=== PATIENT | male | born 1950 | race Caucasian/White ===

== ENCOUNTER 2020-09-22 14:33 | Inpatient (IN) ==
--- NOTE | 2020-09-22 14:47 | Emergency Department Note ---
HPI General Chief complaint: Shortness of Breath/Dyspnea Stated complaint: shortness of breath, low O2 sats Time Seen by Provider: 09/22/20 14:37 Source: patient and family Mode of arrival: wheelchair Limitations: no limitations History of Present Illness HPI Narrative: Patient is 70-year-old gentleman who arrives the emergency department by private vehicle complaining of shortness of breath. The patient says he returned from a camping trip about 2 days ago and started developing a cough chest pain and shortness of breath. The chest pain gets worse whenever he takes a deep breath in. He denies any associated fever or chills. Today, he appeared to be having increased work of breathing and seemed confused to family members so they decided to bring him to the emergency department for further evaluation. Nothing seems to make his symptoms any better or worse. He has not received a Covid vaccine. Related Data Home Medications Medication Instructions Recorded Confirmed losartan 100 1 tab PO QDAY 12/03/14 09/22/20 mg-hydrochlorothiazide 25 mg tablet tramadol 50 mg tablet 50 - 100 mg PO Q8H tab 12/03/14 09/22/20 levothyroxine [Euthyrox] 125 mcg PO QDAY 09/22/20 09/22/20 triamcinolone acetonide 1 applic TOPICAL BID 09/22/20 09/22/20 Allergies Allergy/AdvReac Type Severity Reaction Status Date / Time morphine sulfate Allergy Unknown itching/bur Uncoded 12/04/14 13:53 bruce Review of Systems ROS ROS Narrative: Narrative: All systems ED: reviewed and negative except as stated. 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) Hx of shoulder surgery (Acute) Hx of umbilical hernia repair (Acute) Hx of ventral hernia repair (Acute) Hx of foot surgery (Acute) Hx of foot surgery (Acute) Hx of eye surgery (Acute) Hx of cholecystectomy (Acute) Hx of cataract surgery (Acute) History of appendectomy (Acute) 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) Insomnia w/ sleep apnea (Chronic) Impaired fasting glucose (Chronic) Hypothyroidism (acquired) (Chronic) Hyperlipidemia (Chronic) Pure hypercholesterolemia (Chronic) Hypertension (Chronic) Fatigue (Chronic) DDD (degenerative disc disease) (Chronic) Colon polyps (Chronic) Actinic keratosis (Chronic) Abdominal pain (Chronic) Medical History Abdominal pain Actinic keratosis Colon polyps DDD (degenerative disc disease) Recorded 02/19/09 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 Edgar Hx of ventral hernia repair with mesh; prorusion and pain Family History mother Aortic aneurysm sister Diabetes mellitus brother Epilepsy Acute myocardial infarction father Cardiac disease Essential hypertension Social History Smoking Status: Former smoker Alcohol Intake Frequency: former alcohol drinker Substance Use: does not use Exam Narrative Narrative: I reviewed the vital signs. Gen -patient is awake and alert and appears slightly uncomfortable. The patient is well groomed. HEENT -head is atraumatic. There is no conjunctival pallor or scleral icterus. Mucous membranes are moist. CV -S1-S2 regular rate and rhythm. Peripheral pulses are palpable. There is no JVD. GI - Abdomen is soft and nontender to palpation. There is no guarding or rebound tenderness. Resp -breathing slightly labored on room air. The patient is able to speak in short sentences but has visibly increased work of breathing after prolonged periods of conversation lungs have coarse rhonchi bilaterally. There is visible central cyanosis. GI - Abdomen is soft and nontender to palpation. There is no guarding or rebound tenderness. There is a small periumbilical hernia sac palpable that is slightly tender to palpation but soft and easily reducible Derm -skin is warm and dry. There is no visible rash. MSK -present extremities are atraumatic. Psych -patient has appropriate affect. The patient does not appear internally stimulated. Neuro -patient answers questions appropriately with fluent speech. Patient moves all present extremities equally. General Limitations: no limitations Course Vital Signs Vital signs: Vital Signs Temperature 98.7 F 09/22/20 14:34 Pulse Rate 82 09/22/20 14:34 Respiratory Rate 26 H 09/22/20 14:34 Blood Pressure 147/70 09/22/20 14:34 Pulse Oximetry (%) 62 L 09/22/20 14:34 Temperature 98.7 F 09/22/20 14:34 Pulse Rate 82 09/22/20 16:17 Respiratory Rate 36 H 09/22/20 16:17 Blood Pressure 144/65 09/22/20 16:17 Pulse Oximetry (%) 84 L 09/22/20 16:17 MDM MDM Narrative Medical decision making narrative: Patient presents with shortness of breath. He was initially quite hypoxemic so he was placed on supplemental oxygen via simple mask and had improvement in his oxygen saturation. Chest x-ray reveals patchy multifocal pneumonia consistent with Covid. He does have a positive Covid test. Labs are remarkable for an arterial blood gas that does reveal hypoxemic respiratory failure but no evidence of hypercapnic respiratory failure. I discussed the test results and my clinical impression with the patient as well as his daughter via telephone. They are agreeable with plan for admission and further treatment for his Covid pneumonia. I discussed the patient's history examination and diagnostic findings with Dr. Dalton, who agrees with the plan of care and accepts admission. Critical care time I provided 35 minutes of critical care time. This was in addition to any separately billable procedures. The patient was given supplemental oxygen to treat his hypoxemic respiratory failure. He was given dexamethasone to treat the causative Covid pneumonia.. The patient was closely monitored for response to treatment and stability of vital signs throughout their emergency department stay. Lab Data Lab results reviewed: Yes I reviewed the patient's lab results. Result diagrams: 09/22/20 14:48 Labs: Lab Results 09/22/20 09/22/20 09/22/20 Range/Units 14:47 14:48 14:48 WBC 4.5 (4.5-11.0) K/mcL RBC 4.74 (4.50-5.90) M/mcL Hgb 14.6 (13.5-16.5) g/dL Hct 42.9 (41.0-55.0) % POC Hct 43 (41-55) % MCV 90.5 (80.0-100.0) fL MCH 30.8 (26.0-34.0) pg MCHC 34.0 (31.0-36.0) g/dL RDW 13.1 (11.5-14.5) % Plt Count 131 L (140-440) K/mcL MPV 10.9 H (7.4-10.4) fL Neut % (Auto) 69.1 (38.0-78.0) % Lymph % (Auto) 27.4 (15.0-49.0) % [place] % (Auto) 3.1 (1.0-12.0) % Eos % (Auto) 0 (0.0-7.0) % Baso % (Auto) 0.4 (0.0-2.0) % Lymph # (Auto) 1.23 L (1.50-4.80) K/mcL [place] # (Auto) 0.14 (0.10-0.90) K/mcL Eos # (Auto) 0 (0.00-0.70) K/mcL Baso # (Auto) 0.02 (0.00-0.20) K/mcL Absolute Neutrophils 3.10 (1.80-8.00) K/mcL ABG pH (7.35-7.45) U ABG pCO2 (35.0-45.0) mmHg ABG pO2 (80.0-100.0) mmHg ABG HCO3 (22.0-26.0) mmol/L ABG Total CO2 (23.0-27.0) mmol/L ABG O2 Saturation (94.0-97.0) % ABG Base Excess (-2-3) ABG Methemoglobin (0.4-1.5) % VBG Lactic Acid (0.5-2.0) mmol/L Carboxyhemoglobin (0.0-1.5) % THgb Total Hemoglobin (13.5-16.5) gm/Dl POC Sodium 137 (133-145) mEq/L POC Potassium 4.1 (3.3-5.1) mEql/L POC Chloride 99 (96-108) mEq/L POC Total CO2 27 (22-30) mmol/L POC BUN 26 H (6-20) mg/dL POC Creatinine 1.0 (0.6-1.2) mg/dL POC Glucose 101 (70-105) mg/dL POC WB Ioniz Calcium 1.08 L (1.16-1.32) mmEq/L Troponin T < 0.01 (<0.03) ng/mL NT-Pro-B Natriuret Pep 32.1 (<125.0) pg/mL 09/22/20 09/22/20 Range/Units 15:18 15:30 WBC (4.5-11.0) K/mcL RBC (4.50-5.90) M/mcL Hgb (13.5-16.5) g/dL Hct (41.0-55.0) % POC Hct (41-55) % MCV (80.0-100.0) fL MCH (26.0-34.0) pg MCHC (31.0-36.0) g/dL RDW (11.5-14.5) % Plt Count (140-440) K/mcL MPV (7.4-10.4) fL Neut % (Auto) (38.0-78.0) % Lymph % (Auto) (15.0-49.0) % [place] % (Auto) (1.0-12.0) % Eos % (Auto) (0.0-7.0) % Baso % (Auto) (0.0-2.0) % Lymph # (Auto) (1.50-4.80) K/mcL [place] # (Auto) (0.10-0.90) K/mcL Eos # (Auto) (0.00-0.70) K/mcL Baso # (Auto) (0.00-0.20) K/mcL Absolute Neutrophils (1.80-8.00) K/mcL ABG pH 7.45 (7.35-7.45) U ABG pCO2 37.2 (35.0-45.0) mmHg ABG pO2 72.8 L (80.0-100.0) mmHg ABG HCO3 25.2 (22.0-26.0) mmol/L ABG Total CO2 26.4 (23.0-27.0) mmol/L ABG O2 Saturation 93.1 L (94.0-97.0) % ABG Base Excess 1 (-2-3) ABG Methemoglobin 0.3 L (0.4-1.5) % VBG Lactic Acid 1.1 (0.5-2.0) mmol/L Carboxyhemoglobin 1.9 H (0.0-1.5) % THgb Total Hemoglobin 13.9 (13.5-16.5) gm/Dl POC Sodium (133-145) mEq/L POC Potassium (3.3-5.1) mEql/L POC Chloride (96-108) mEq/L POC Total CO2 (22-30) mmol/L POC BUN (6-20) mg/dL POC Creatinine (0.6-1.2) mg/dL POC Glucose (70-105) mg/dL POC WB Ioniz Calcium (1.16-1.32) mmEq/L Troponin T (<0.03) ng/mL NT-Pro-B Natriuret Pep (<125.0) pg/mL ED POC Tests ED POC Tests: TARIK - SARS Antigen Positive EKG Data EKG #1: EKG attestation: Yes I reviewed and interpreted this EKG. EKG results narrative: EKG performed at 2:20 PM: Sinus rhythm, rate 84. Normal P wave and QRS morphology. No ST segment deviation. T waves are diffusely flattened. Normal MA QRS and QTc duration. No old EKG immediately available for comparison. EKG was interpreted by me. Discharge Plan Patient/Caregiver Discharge Instructions Pt seen by FOOD SERVICE ASSISTANT/PA only: No Patient Disposition: Xfer As Inpt ([facility]) Condition: Serious Follow up with: Reshma De Leon MD [Primary Care Provider] - Prescriptions: No Action tramadol 50 mg tablet 50 - 100 mg PO Q8H RF: 0 losartan-hydrochlorothiazide 100-25 mg tablet 1 tab PO QDAY RF: 0 levothyroxine [Euthyrox] 125 mcg Tablet 125 mcg PO QDAY RF: 0 triamcinolone acetonide 0.1 % ointment 1 applic TOPICAL BID RF: 0
[2020-09-22 14:55] LABS: POC Blood Urea Nitrogen 26 mg/dL (6-20); POC CO2 27 mmol/L (22-30); POC Calcium, Ionized 1.08 mmEq/L (1.16-1.32); POC Chloride 99 mEq/L (96-108); POC Glucose, Random 101 mg/dL (70-105); POC Hematocrit 43 % (41-55); POC Potassium 4.1 mEql/L (3.3-5.1); POC Sodium 137 mEq/L (133-145)
[2020-09-22] MEDS ORDERED: DEXAMETHASONE 4 MG TABLET PO ONE (15:13)
[2020-09-22 15:21] LABS: Basophils # (Auto) 0.02 K/mcL (0.00-0.20); Basophils % (Auto) 0.4 % (0.0-2.0); Eosinophils # (Auto) 0 K/mcL (0.00-0.70); Eosinophils % (Auto) 0 % (0.0-7.0); Hematocrit 42.9 % (41.0-55.0); Hemoglobin 14.6 g/dL (13.5-16.5); Lymphocytes # (Auto) 1.23 K/mcL (1.50-4.80); Lymphocytes % (Auto) 27.4 % (15.0-49.0); Mean Cell Volume 90.5 fL (80.0-100.0); Mean Platelet Volume 10.9 fL (7.4-10.4); Monocytes # (Auto) 0.14 K/mcL (0.10-0.90); Monocytes % (Auto) 3.1 % (1.0-12.0); Neutrophils % (Auto) 69.1 % (38.0-78.0); Platelet Count 131 K/mcL (140-440); RBC 4.74 M/mcL (4.50-5.90); Red Cell Distribution Width 13.1 % (11.5-14.5); WBC 4.5 K/mcL (4.5-11.0)
[2020-09-22 15:35] LABS: proBNP 32.1 pg/mL (<125.0)
--- NOTE | 2020-09-22 15:49 | XRay Report ---
INDICATION: dyspnea TECHNIQUE: AP portable semiupright chest x-ray COMPARISON: Previous examination dated 01/05/2006 FINDINGS: Lungs:Bilateral pulmonary parenchymal infiltrates consistent with pneumonia. Covid pneumonia should be considered Heart, vascular:No significant cardiomegaly. Pulmonary vascularity is normal. No pulmonary edema or pulmonary congestion Mediastinum, ludivina:No mediastinal widening. No hilar mass Pleura:No pleural fluid. No pleural-based mass or calcification Skeletal:Negative. IMPRESSION: 1. Bilateral pulmonary parenchymal infiltrates consistent with pneumonia 2. Findings may be secondary to covid pneumonia Interpreted and Authenticated by: sAael Willard 09/22/20
[2020-09-22 16:05] LABS: ABG Base Excess 1 (-2-3); ABG HCO3 25.2 mmol/L (22.0-26.0); ABG Methemoglobin 0.3 % (0.4-1.5); ABG Oxygen Saturation 93.1 % (94.0-97.0); ABG PCO2 37.2 mmHg (35.0-45.0); ABG PH 7.45 U (7.35-7.45); ABG PO2 72.8 mmHg (80.0-100.0); ABG TCO2 26.4 mmol/L (23.0-27.0); Total Hemoglobin 13.9 gm/Dl (13.5-16.5)
--- NOTE | 2020-09-22 16:07 | EKG ---
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 Measurements Intervals [place] Rate: 84 P: 34 CO: 179 QRS: 10 QRSD: 105 T: 9 QT: 368 QTc: 436 Interpretive Statements Sinus rhythm Low voltage, precordial leads Borderline T abnormalities, anterior leads NO PRIOR TRACING FOR COMPARISON BORDERLINE TRACING Electronically Signed On 09-22-2020 16:07:32 PDT by Brenton Linares M.D. /store/[email or web address]/[id number]
[2020-09-22] MEDS ORDERED: traMADol 50 MG TABLET PO SCH (17:00)
--- NOTE | 2020-09-22 17:22 | Internal Med History&Physical ---
HPI History of Present Illness Patient information: Note initiated : 09/22/20 at 5:10 pm Service Date, if different from initiated Date: [] Patient: Julius Finley a 70 y/o M admitted on for shortness of breath, low O2 sats. Chief Complaint: [shortness of breath] History of present illness: Mr. Finley is a 70 year old M history of hypothyroidism as well as essential hypertension's, presenting with 2-day history of general body weakness, shortness of breath, and productive cough. There was no prior similar episode. Patient's has not been vaccinated against Covid pneumonia. Of a back home from [facility] 2 days ago, patient has acute onset shortness of breath, productive cough with yellow sputum, general body weakness, and decreased appetite. He denies respiratory wheezings. He is coming of chest pain whenever he coughs. He denies subjective fever or shaking chills or diaphoresis. Vital signs at ED presentation significant for O2 sat in the 60s on room air. He was afebrile. Labs significant for absence of leukocytosis with WBC 4.5. Covid rapid test positive. Serum lactic acid as well as procalcitonin were pending at time of dictation. Chest x-ray showing bilateral pulmonary infiltrates typical for Covid pneumonia. Constitutional Constitutional: Present fatigue and weakness; Absent chills, excessive sweating and fever(s) Additional comments: decreased appetite EENT Eyes: Absent blurry vision, change in vision, loss of vision and other visual disturbances Ears: Absent decreased hearing and tinnitus Nose, mouth and throat: Absent abnormal hearing, dry mouth, headache(s), nasal congestion and sore throat Cardiovascular Cardiovascular: Absent chest pain, chest pain at rest, edema, irregular heart rhythm and palpatations Respiratory Respiratory: Present cough, dyspnea and excessive phlegm production; Absent wheezing Gastrointestinal Gastrointestinal: Absent abdominal pain, constipation, diarrhea, nausea and vomiting Musculoskeletal Musculoskeletal: Absent back pain, deformity, limited range of motion, muscle cramps, muscle weakness and numbness Integumentary Integumentary: Absent lesions, rash and wounds Neurological Neurological: Absent focal weakness, headache(s) and numbness Psychiatric Psychiatric: Absent anxiety, depression and hallucinations PFSH PFSH All Active Problems (Updated 09/22/20 @ 16:56 by Benji Dalton MD) Thrombocytopenia (Acute) Pneumonia due to COVID-19 virus (Acute) Acute respiratory failure with hypoxemia (Acute) Essential (primary) hypertension (Acute) 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 (Acute) Hx of shoulder surgery (Acute) Hx of umbilical hernia repair (Acute) Hx of ventral hernia repair (Acute) Hx of foot surgery (Acute) Hx of foot surgery (Acute) Hx of eye surgery (Acute) Hx of cholecystectomy (Acute) Hx of cataract surgery (Acute) History of appendectomy (Acute) 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) Insomnia w/ sleep apnea (Chronic) Impaired fasting glucose (Chronic) Hypothyroidism (acquired) (Chronic) Hyperlipidemia (Chronic) Pure hypercholesterolemia (Chronic) Hypertension (Chronic) Fatigue (Chronic) DDD (degenerative disc disease) (Chronic) Colon polyps (Chronic) Actinic keratosis (Chronic) Abdominal pain (Chronic) Medical History Abdominal pain Actinic keratosis Colon polyps DDD (degenerative disc disease) Recorded 02/19/09 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 alcohol intake frequency: former alcohol drinker substance use type: does not use MEDS/ALLERGIES Home Medications and Allergies Home Medications Medication Instructions Recorded Confirmed Type losartan 100 1 tab PO QDAY 12/03/14 09/22/20 History mg-hydrochlorothiazide 25 mg tablet tramadol 50 mg tablet 50 - 100 mg PO Q8H tab 12/03/14 09/22/20 History levothyroxine [Euthyrox] 125 mcg PO QDAY 09/22/20 09/22/20 History triamcinolone acetonide 1 applic TOPICAL BID 09/22/20 09/22/20 History Allergies Allergy/AdvReac Type Severity Reaction Status Date / Time morphine sulfate Allergy Unknown itching/bur Uncoded 12/04/14 13:53 bruce EXAM Constitutional Vitals: Temp Pulse Resp BP Pulse Ox 37.1 C 82 36 H 144/65 84 L 09/22/20 14:34 09/22/20 16:17 09/22/20 16:17 09/22/20 16:17 09/22/20 16:17 General appearance: cooperative and no acute distress Head Head exam: Present atraumatic and normocephalic Eye Eye exam: Present EOMI and PERRL ENT ENT exam: Present mucous membranes moist, normal exam and normal external ear exam Additional comments: Oxygen mask in place Neck Neck exam: Present normal inspection; Absent lymphadenopathy, tenderness and thyromegaly Respiratory Respiratory exam: Present respiratory distress and rhonchi; Absent accessory muscle use and wheezes Cardiovascular Cardiovascular exam: Present normal rate and rhythm; Absent JVD GI/Abdominal GI/Abdominal exam: Present normal bowel sounds and soft; Absent organomegaly and tenderness Rectal Rectal exam: Present deferred Extremities Exam Extremities exam: Present full ROM, normal capillary refill, normal inspection and pedal edema; Absent tenderness Neurological Exam Neurological exam: Present alert, CN II-XII intact and oriented X3; Absent motor sensory deficit Psychiatric Psychiatric exam: Present normal affect and normal mood; Absent anxious and depressed Skin Skin exam: Present dry and intact DATA Data Completed and Pending Labs: Labs from last 24 hours 09/22/20 09/22/20 09/22/20 15:30 15:18 14:48 WBC RBC Hgb Hct POC Hct 43 MCV MCH MCHC RDW Plt Count MPV Neut % (Auto) Lymph % (Auto) [place] % (Auto) Eos % (Auto) Baso % (Auto) Lymph # (Auto) [place] # (Auto) Eos # (Auto) Baso # (Auto) Absolute Neutrophils Patient Temperature Pending ABG pH 7.45 ABG pH (Temp Correct) Pending ABG pCO2 37.2 ABG pCO2 (Temp Corrct Pending ABG pO2 72.8 L ABG pO2 (Temp Correct Pending ABG HCO3 25.2 ABG Total CO2 26.4 ABG O2 Saturation 93.1 L ABG Base Excess 1 ABG Methemoglobin 0.3 L VBG Lactic Acid 1.1 Carboxyhemoglobin 1.9 H Total Hemoglobin 13.9 Respiration Rate Pending O2 Delivery Method Pending Vent Mode Pending FiO2 Pending Tidal Volume Pending PEEP Pending POC Sodium 137 POC Potassium 4.1 POC Chloride 99 POC Total CO2 27 POC BUN 26 H POC Creatinine 1.0 POC Glucose 101 POC WB Ioniz Calcium 1.08 L Troponin T NT-Pro-B Natriuret Pep 32.1 09/22/20 09/22/20 14:48 14:47 WBC 4.5 RBC 4.74 Hgb 14.6 Hct 42.9 POC Hct MCV 90.5 MCH 30.8 MCHC 34.0 RDW 13.1 Plt Count 131 L MPV 10.9 H Neut % (Auto) 69.1 Lymph % (Auto) 27.4 [place] % (Auto) 3.1 Eos % (Auto) 0 Baso % (Auto) 0.4 Lymph # (Auto) 1.23 L [place] # (Auto) 0.14 Eos # (Auto) 0 Baso # (Auto) 0.02 Absolute Neutrophils 3.10 Patient Temperature ABG pH ABG pH (Temp Correct) ABG pCO2 ABG pCO2 (Temp Corrct ABG pO2 ABG pO2 (Temp Correct ABG HCO3 ABG Total CO2 ABG O2 Saturation ABG Base Excess ABG Methemoglobin VBG Lactic Acid Carboxyhemoglobin Total Hemoglobin Respiration Rate O2 Delivery Method Vent Mode FiO2 Tidal Volume PEEP POC Sodium POC Potassium POC Chloride POC Total CO2 POC BUN POC Creatinine POC Glucose POC WB Ioniz Calcium Troponin T < 0.01 NT-Pro-B Natriuret Pep A/P Assessment and plan (1) Thrombocytopenia: Status: Acute (2) Pneumonia due to COVID-19 virus: Status: Acute (3) Acute respiratory failure with hypoxemia: Status: Acute (4) Essential (primary) hypertension: Status: Acute (5) Hypothyroidism (acquired): Status: Chronic Narrative A/P Narrative: Assessment and Plans: 1. Acute respiratory failure with hypoxemia secondary to CoVID pneumonia: Admit to inpatient PCU Blood cultures X2 Serum lactic acid Procalcitonin Daily inflammatory markers Isolation: airborne and contact Oxygen therapy titrate to achieve spo2 >=92% CT chest w/o contrast to look for bacterial superinfection Remdesivir Dexamethasone Losartan-HCTZ as diuretics Lovenox 1mg/kg BID Robitussin DM PRN cough Tylenol PRN fever DuoNEB NEB q4hr PRN wheezing cbc w/ auto diff in the morning to trend WBC 2. Essential HTN: Currently normotensive Continue Losartan-HCTZ for blood pressure control 3. Thrombocytopenia: Could be secondary to CoVID infection Daily cbc w/ auto diff in the morning to trend plt; plt transfusion if plt count <15 or active bleeding 4. Hypothyroidism: Continue oral thyroid replacement GI ppx: not currently indicated DVT ppx: Lovenox 1mg/kg BID Code status: Full Prognosis: guarded Disposition: inpatient PCU Time Spent With Patient Time: Total time spent is greater than 50% in coordination of care (as documented) at patient's floor/unit and/or counseling patient: Total time spent with greater than 50% in coordination of care (as documented) at patient's floor/unit and/or counseling patient:: 25 - 35 minutes
[2020-09-22] MEDS ORDERED: IPRATROPIUM/ALBUTEROL 3 ML AMPUL.NEB NEB PRN (17:32)
[2020-09-22] MEDS ORDERED: LACTULOSE 20 GM/30 ML ORAL.SOL PO PRN (17:32)
[2020-09-22] MEDS ORDERED: ONDANSETRON 4 MG/2 ML VIAL IV PRN (17:32)
[2020-09-22] MEDS ORDERED: ACETAMINOPHEN 325 MG TABLET PO PRN (17:32)
[2020-09-22 18:14] LABS: ALT/SGPT 60 U/L (<40); AST/SGOT 82 U/L (<40); Albumin 3.6 gm/dL (3.2-5.2); Albumin/Globulin Ratio 1.4 (1.0-2.3); Alkaline Phosphatase 87 U/L (39-117); Bilirubin,Total 0.7 mg/dL (0.1-1.0); Blood Urea Nitrogen 25 mg/dL (8-23); Calcium 8.3 mg/dL (8.6-10.4); Carbon Dioxide 27 mmol/L (22-30); Chloride 98 mmol/L (96-108); Globulin 2.5 gm/dL (2.2-3.7); Glomerular Filtration Rate 61; Glucose 98 mg/dL (70-105)
[2020-09-22 18:15] LABS: Lactate Dehydrogenase 530 U/L (135-225)
[2020-09-22 18:23] LABS: Prothrombin Time 13.2 sec (11.9-14.5)
[2020-09-22] MEDS ORDERED: REMDESIVIR 200 MG in 0.9 % SODIUM CHLORIDE 250 ML IV ONE (18:30)
[2020-09-22 18:36] LABS: Estimated Average Glucose(eAG) 111 mg/dL; Hemoglobin A1C 5.5 % Hgb (4.0-6.0)
[2020-09-22] MEDS: traMADol 50 MG TABLET PO SCH (19:17)
[2020-09-22] MEDS: ENOXAPARIN 120 MG/0.8 ML SYRINGE SQ SCH (19:18)
[2020-09-22] MEDS: DOCUSATE SODIUM 100 MG CAPSULE PO SCH (19:18)
[2020-09-22] MEDS: SENNOSIDES 1 TABLET PO PRN (19:18)
[2020-09-22] MEDS: AZITHROMYCIN 500 MG in DEXTROSE 5% IN WATER 250 ML IV SCH (19:54)
[2020-09-22] MEDS: TRIAMCINOLONE CRM 0.5% TUBE 15GM TOPICAL SCH (19:56)
[2020-09-22] MEDS: cefTRIAXone 1 GM VIAL IV SCH (20:01)
[2020-09-22] MEDS: 0.9 % SODIUM CHLORIDE 10 ML SYRINGE IV SCH (21:00)
[2020-09-22] MEDS ORDERED: IBUPROFEN 600 MG TABLET PO PRN (21:55)
[2020-09-22] MEDS ORDERED: traZODone HCL 50 MG TABLET ONE (22:00)
[2020-09-22] MEDS: guaiFENesin/DEXTROMETHORPHAN ORAL SOL PO PRN (22:02)
[2020-09-22] MEDS: traZODone HCL 50 MG TABLET PO PRN (22:02)
[2020-09-22] MEDS ORDERED: IBUPROFEN 600 MG TABLET PO ONE (22:03)
[2020-09-23] MEDS: traMADol 50 MG TABLET PO SCH (03:18)
[2020-09-23 07:05] LABS: Basophils # (Auto) 0.01 K/mcL (0.00-0.20); Basophils % (Auto) 0.2 % (0.0-2.0); Eosinophils # (Auto) 0 K/mcL (0.00-0.70); Eosinophils % (Auto) 0 % (0.0-7.0); Hematocrit 41.2 % (41.0-55.0); Hemoglobin 13.8 g/dL (13.5-16.5); Lymphocytes # (Auto) 0.93 K/mcL (1.50-4.80); Lymphocytes % (Auto) 20.8 % (15.0-49.0); Mean Cell Volume 91.4 fL (80.0-100.0); Mean Corpuscular HGB Conc 33.5 g/dL (31.0-36.0); Mean Platelet Volume 10.7 fL (7.4-10.4); Monocytes # (Auto) 0.25 K/mcL (0.10-0.90); Monocytes % (Auto) 5.6 % (1.0-12.0); Neutrophils % (Auto) 73.4 % (38.0-78.0); Platelet Count 142 K/mcL (140-440); RBC 4.51 M/mcL (4.50-5.90); WBC 4.5 K/mcL (4.5-11.0)
[2020-09-23 07:41] LABS: Lactate Dehydrogenase 539 U/L (135-225)
[2020-09-23 07:42] LABS: ALT/SGPT 52 U/L (<40); AST/SGOT 69 U/L (<40); Albumin 3.2 gm/dL (3.2-5.2); Alkaline Phosphatase 84 U/L (39-117); Bilirubin,Total 0.5 mg/dL (0.1-1.0); Blood Urea Nitrogen 23 mg/dL (8-23); Calcium 8.2 mg/dL (8.6-10.4); Carbon Dioxide 24 mmol/L (22-30); Chloride 96 mmol/L (96-108); Globulin 3.1 gm/dL (2.2-3.7); Glomerular Filtration Rate 68; Glucose 143 mg/dL (70-105)
[2020-09-23 08:13] LABS: Prothrombin Time 13.7 sec (11.9-14.5)
[2020-09-23] MEDS ORDERED: METHOCARBAMOL 750 MG TABLET PO PRN (08:31)
[2020-09-23] MEDS ORDERED: traMADol 50 MG TABLET PO PRN (08:33)
[2020-09-23] MEDS: DOCUSATE SODIUM 100 MG CAPSULE PO SCH ×2 (08:43→21:11)
[2020-09-23] MEDS ORDERED: POLYETHYLENE GLYCOL 3350 17 GM PACKET PO PRN (08:53)
[2020-09-23] MEDS: ENOXAPARIN 120 MG/0.8 ML SYRINGE SQ SCH ×2 (08:56→21:11)
[2020-09-23] MEDS ORDERED: DEXAMETHASONE 10 MG/ML VIAL IV SCH (09:00)
[2020-09-23] MEDS ORDERED: LOSARTAN 50 MG TABLET PO SCH (09:00)
[2020-09-23] MEDS ORDERED: LEVOTHYROXINE 125 MCG TABLET PO SCH ×2 (09:00)
[2020-09-23] MEDS ORDERED: HYDROCHLOROTHIAZIDE 25 MG TABLET PO SCH (09:00)
[2020-09-23] MEDS ORDERED: POLYETHYLENE GLYCOL 3350 17 GM PACKET PO SCH (09:00)
[2020-09-23] MEDS ORDERED: LOSARTAN/HCTZ 100/25 TABLET PO SCH ×2 (09:00)
[2020-09-23] MEDS: traMADol 50 MG TABLET PO PRN ×2 (09:00→21:12)
[2020-09-23] MEDS: AZITHROMYCIN 500 MG in DEXTROSE 5% IN WATER 250 ML IV SCH (09:04)
[2020-09-23] MEDS: 0.9 % SODIUM CHLORIDE 10 ML SYRINGE IV SCH ×3 (09:05→21:11)
[2020-09-23] MEDS: TRIAMCINOLONE CRM 0.5% TUBE 15GM TOPICAL SCH ×2 (09:58→20:10)
--- NOTE | 2020-09-23 10:29 | Internal Med Progress Note ---
SUBJECTIVE Subjective Patient information: Note initiated : 09/23/20 at 10:22 am Service Date, if different from initiated Date: [] Patient: Julius Finley a 70 y/o M admitted on 09/22/20 for shortness of breath, low O2 sats. Chief Complaint: [CoVID pneumonia] History of present illness: Mr. Finley is a 70 year old M history of hypothyroidism as well as essential hypertension's, presenting with 2-day history of general body weakness, shortness of breath, and productive cough. There was no prior similar episode. Patient's has not been vaccinated against Covid pneumonia. Of a back home from [facility] 2 days ago, patient has acute onset shortness of breath, productive cough with yellow sputum, general body weakness, and decreased appetite. He denies respiratory wheezings. He is coming of chest pain whenever he coughs. He denies subjective fever or shaking chills or diaphoresis. Vital signs at ED presentation significant for O2 sat in the 60s on room air. He was afebrile. Labs significant for absence of leukocytosis with WBC 4.5. Covid rapid test positive. Serum lactic acid as well as procalcitonin were pending at time of dictation. Chest x-ray showing bilateral pulmonary infiltrates typical for Covid pneumonia. 09/23: Afebrile. Been on BiPAP FiO2 45% 11/22 overnight. Not been prone. Blood cultures no growth to date. c/o slightly improving shortness of breath. c/o productive cough with yellow sputum. Denies wheezing. Denies fever or chills or sweating. Denies chest pain. Constitutional Vitals: Vital Signs Temp Pulse Resp BP Pulse Ox 36.8 C 62 24 H 92/61 92 09/23/20 08:01 09/23/20 10:01 09/23/20 10:01 09/23/20 10:01 09/23/20 10:01 Period Temp Pulse Resp BP Sys/Garrett Pulse Ox Last 24 Hr 36.3 C-37.1 C 62-88 15-37 92-149/58-103 62-96 Intake and Output 09/22/20 09/23/20 09/23/20 21:59 05:59 13:59 Intake Total 250 250 450 Output Total 150 300 550 Balance 100 -50 -100 Weight 119.703 kg Intake & Output: Intake & Output 09/22/20 09/23/20 09/23/20 21:59 05:59 13:59 Intake Total 250 250 450 Output Total 150 300 550 Balance 100 -50 -100 Weight 119.703 kg Intake: IV 250 250 250 Zithromax 500 mg In Dextrose 5% 250 250 in Water 250 ml @ 250 mls/hr IV Q24H [facility] Rx#:[id number] Veklury 200 mg In Sodium 250 Chloride 0.9% 250 ml @ 500 mls/ hr IV ONCE ONE Rx#:[id number] Oral 200 Output: Urine Catheter Amount 400 Void Amount 150 300 150 Other: Meal Breakfast Percent of Meal Consumed 0% Feeding Ability Needs Supervision Urine Appearance Clear Clear Clear Urine Color Bright Yellow Bright Yellow Dark Madisyn Urine Odor Normal General appearance: cooperative and no acute distress Head Head exam: Present atraumatic and normocephalic Eye Eye exam: Present EOMI and PERRL ENT ENT exam: Present mucous membranes moist, normal exam and normal external ear exam Additional comments: BiPAP in place Neck Neck exam: Present normal inspection; Absent lymphadenopathy, tenderness and thyromegaly Respiratory Respiratory exam: Present rhonchi; Absent accessory muscle use, respiratory distress and wheezes Cardiovascular Cardiovascular exam: Present normal rate and rhythm; Absent JVD GI/Abdominal GI/Abdominal exam: Present normal bowel sounds and soft; Absent organomegaly and tenderness Rectal Rectal exam: Present deferred Extremities Exam Extremities exam: Present full ROM, normal capillary refill, normal inspection and pedal edema; Absent tenderness Neurological Exam Neurological exam: Present alert, CN II-XII intact and oriented X3; Absent motor sensory deficit Psychiatric Psychiatric exam: Present normal affect and normal mood; Absent anxious and depressed Skin Skin exam: Present dry and intact OBJ DATA Labs CBC & Chem 7: 09/23/20 05:36 09/23/20 05:51 Labs: Abnormal Lab Results 09/23/20 09/23/20 09/23/20 05:51 05:37 05:36 Plt Count MPV Lymph # (Auto) Fibrinogen D-Dimer ABG pO2 ABG O2 Saturation ABG Methemoglobin Carboxyhemoglobin POC BUN BUN Glucose 143 H Calcium 8.2 L POC WB Ioniz Calcium Ferritin 1593.0 H AST 69 H ALT 52 H Lactate Dehydrogenase 539 H C-Reactive Protein 8.20 H Procalcitonin 0.21 H 0809/23/20 09/22/20 05:36 05:36 15:18 Plt Count MPV 10.7 H Lymph # (Auto) 0.93 L Fibrinogen 618 H D-Dimer 0.90 H ABG pO2 72.8 L ABG O2 Saturation 93.1 L ABG Methemoglobin 0.3 L Carboxyhemoglobin 1.9 H POC BUN BUN Glucose Calcium POC WB Ioniz Calcium Ferritin AST ALT Lactate Dehydrogenase C-Reactive Protein Procalcitonin 09/22/20 09/22/20 09/22/20 14:48 14:48 14:48 Plt Count MPV Lymph # (Auto) Fibrinogen 610 H D-Dimer ABG pO2 ABG O2 Saturation ABG Methemoglobin Carboxyhemoglobin POC BUN BUN 25 H Glucose Calcium 8.3 L POC WB Ioniz Calcium Ferritin 1699.0 H AST 82 H ALT 60 H Lactate Dehydrogenase 530 H C-Reactive Protein 7.20 H Procalcitonin 0.22 H 09/22/20 09/22/20 09/22/20 14:48 14:48 14:48 Plt Count 131 L MPV 10.9 H Lymph # (Auto) 1.23 L Fibrinogen D-Dimer 0.78 H ABG pO2 ABG O2 Saturation ABG Methemoglobin Carboxyhemoglobin POC BUN 26 H BUN Glucose Calcium POC WB Ioniz Calcium 1.08 L Ferritin AST ALT Lactate Dehydrogenase C-Reactive Protein Procalcitonin Meds: Medications Acetaminophen (Acetaminophen 325 Mg Tablet) 650 mg PO Q6HP PRN; Protocol PRN Reason: Per Pain Protocol/Fever > 101 Albuterol/Ipratropium (Ipratropium/Albuterol 3 Ml Ampul.Neb) 3 ml NEB Q4HRT PRN PRN Reason: Wheezing Ceftriaxone Sodium (Ceftriaxone 1 Gm Vial) 1 gm IV Q24H [facility]; Protocol Last Admin: 09/22/20 20:01 Dose: 1 gm Documented by: Dexamethasone (Dexamethasone 10 Mg/Ml Vial) 6 mg IV DAILY [facility] Last Admin: 09/23/20 08:42 Dose: 6 mg Documented by: Docusate Sodium (Docusate Sodium 100 Mg Capsule) 100 mg PO BID [facility] Last Admin: 09/23/20 08:43 Dose: 100 mg Documented by: Enoxaparin Sodium (Enoxaparin 120 Mg/0.8 Ml Syringe) 120 mg SQ BID [facility] Last Admin: 09/23/20 08:56 Dose: 120 mg Documented by: Guaifenesin (Guaifenesin/Dextromethorphan Oral Johanny) 10 ml PO Q4HP PRN PRN Reason: Cough Last Admin: 09/22/20 22:02 Dose: 10 ml Documented by: Hydrochlorothiazide (Hydrochlorothiazide 25 Mg Tablet) 25 mg PO DAILY [facility] Last Admin: 09/23/20 08:59 Dose: 25 mg Documented by: REMDESIVIR 100 mg/ Sodium (Chloride) 250 mls @ 500 mls/hr IV Q24H [facility] Stop: 09/26/20 15:29 Azithromycin 500 mg/ Dextrose 250 mls @ 250 mls/hr IV Q24H [facility]; Protocol Stop: 09/24/20 20:59 Last Infusion: 09/23/20 10:04 Dose: Infused Documented by: Ibuprofen (Ibuprofen 600 Mg Tablet) 600 mg PO Q6HP PRN; Protocol PRN Reason: PAIN/FEVER > 101 Last Admin: 09/22/20 22:01 Dose: 600 mg Documented by: Lactulose (Lactulose 20 Gm/30 Ml Oral.Johanny) 10 gm PO DAILYP PRN PRN Reason: Constipation Levothyroxine Sodium (Levothyroxine 125 Mcg Tablet) 125 mcg PO QDAY [facility] Last Admin: 09/23/20 08:55 Dose: 125 mcg Documented by: Losartan Potassium (Losartan 50 Mg Tablet) 100 mg PO DAILY [facility] Last Admin: 09/23/20 09:01 Dose: Not Given Documented by: Methocarbamol (Methocarbamol 750 Mg Tablet) 750 mg PO TIDP PRN PRN Reason: Pain Ondansetron HCl (Ondansetron 4 Mg/2 Ml Vial) 4 mg IV Q4HP PRN; Protocol PRN Reason: Nausea And Vomiting Polyethylene Glycol (Polyethylene Glycol 3350 17 Gm Packet) 17 gm PO QDAY [facility] Last Admin: 09/23/20 09:03 Dose: 17 gm Documented by: Polyethylene Glycol (Polyethylene Glycol 3350 17 Gm Packet) 17 gm PO DAILYP PRN PRN Reason: Constipation Senna (Sennosides 1 Tablet) 2 tab PO HSP PRN PRN Reason: Constipation Last Admin: 09/22/20 19:18 Dose: 2 tab Documented by: Sodium Chloride (0.9 % Sodium Chloride 10 Ml Syringe) 10 ml IV Q8 [facility] Last Admin: 09/23/20 09:05 Dose: 10 ml Documented by: Tramadol HCl (Tramadol 50 Mg Tablet) 100 mg PO Q4-6HP PRN; Protocol PRN Reason: Pain Last Admin: 09/23/20 09:00 Dose: 100 mg Documented by: Trazodone HCl (Trazodone Hcl 50 Mg Tablet) 25 mg PO HSP PRN PRN Reason: Insomnia Last Admin: 09/22/20 22:02 Dose: 25 mg Documented by: Triamcinolone Acetonide (Triamcinolone Crm 0.5% Tube 15gm) 1 dose TOPICAL BID MIGUEL Last Admin: 09/23/20 09:58 Dose: Not Given Documented by: ABG Interpretation ABG results: 09/22/20 15:18 ABG pH 7.45 ABG pCO2 37.2 ABG pO2 72.8 L ABG HCO3 25.2 ABG Total CO2 26.4 ABG O2 Saturation 93.1 L ABG Base Excess 1 ABG Methemoglobin 0.3 L A/P Assessment and plan (1) Pneumonia due to COVID-19 virus: Status: Acute (2) Acute respiratory failure with hypoxemia: Status: Acute (3) Essential (primary) hypertension: Status: Acute (4) Hypothyroidism (acquired): Status: Chronic Narrative A/P Narrative: Assessment and Plans: 1. Acute respiratory failure with hypoxemia secondary to CoVID pneumonia: Stays in inpatient PCU Blood cultures X2, no growth to date Serum lactic acid Procalcitonin 0.22-->0.21 Daily inflammatory markers Isolation: airborne and contact Oxygen therapy titrate to achieve spo2 >=92% CT chest w/o contrast to look for bacterial superinfection Remdesivir Dexamethasone Rocephin Zithromax Losartan-HCTZ as diuretics Lovenox 1mg/kg BID Robitussin DM PRN cough Tylenol PRN fever DuoNEB NEB q4hr PRN wheezing cbc w/ auto diff in the morning to trend WBC 2. Essential HTN: Hold Losartan for now for soft blood pressure Continue HCTZ for blood pressure control 3. Thrombocytopenia: RESOLVED Could be secondary to CoVID infection Daily cbc w/ auto diff in the morning to trend plt; plt transfusion if plt count <15 or active bleeding 4. Hypothyroidism: Continue oral thyroid replacement GI ppx: not currently indicated DVT ppx: Lovenox 1mg/kg BID Code status: Full Prognosis: guarded Disposition: inpatient PCU Time Spent With Patient Time: Total time spent is greater than 50% in coordination of care (as documented) at patient's floor/unit and/or counseling patient: Total time spent with greater than 50% in coordination of care (as documented) at patient's floor/unit and/or counseling patient:: 15 - 24 minutes QUALITY Stroke Symptom Onset Unknown: No VTE Deep Vein Thrombosis/Pulmonary Embolism Present on Admission: No
[2020-09-23] MEDS ORDERED: REMDESIVIR 100 MG in 0.9 % SODIUM CHLORIDE 250 ML IV SCH (15:00)
[2020-09-23] MEDS: cefTRIAXone 1 GM VIAL IV SCH (21:11)
[2020-09-23] MEDS: SENNOSIDES 1 TABLET PO PRN (21:12)
[2020-09-23] MEDS: traZODone HCL 50 MG TABLET PO PRN (21:12)
[2020-09-23] MEDS: guaiFENesin/DEXTROMETHORPHAN ORAL SOL PO PRN (21:13)
[2020-09-23] MEDS ORDERED: LORazepam 2 MG/ML VIAL IV PRN (23:06)
[2020-09-23] MEDS ORDERED: LORazepam 2 MG/ML VIAL ONE (23:11)
[2020-09-24] MEDS: traMADol 50 MG TABLET PO PRN (01:38)
[2020-09-24] MEDS ORDERED: ROCURONIUM 10 MG/ML ML IV ONE (05:34)
[2020-09-24] MEDS ORDERED: KETAMINE 50 MG/ML Syringe (ANEST) ONE (05:34)
[2020-09-24] MEDS ORDERED: MIDAZOLAM HCL 10 MG/2 ML VIAL ONE (05:34)
[2020-09-24] MEDS: 0.9 % SODIUM CHLORIDE 10 ML SYRINGE IV SCH (05:37)
[2020-09-24] MEDS ORDERED: MIDAZOLAM HCL 50 MG in 0.9 % SODIUM CHLORIDE 90 ML IV SCH (06:15)
[2020-09-24] MEDS ORDERED: fentaNYL 2,500 MCG in 0.9 % SODIUM CHLORIDE 200 ML IV SCH (06:15)
--- NOTE | 2020-09-24 07:00 | Discharge Summary ---
Discharge Provider Provider Patient information: Note initiated : 09/24/20 at 6:57 am Service Date, if different from initiated Date: [] Patient: Julius Finley 70 y/o M admitted on 09/22/20 for shortness of breath, low O2 sats. Chief Complaint: [CoVID pneumonia] Date of admission: 09/22/20 17:11 Discharge date: 09/24/20 Primary care physician: Reshma De Leon Consults: 09/22/20 Consult to Physician [CONS] Stat Comment: Consulting Provider: Benji Dalton Reason For Exam: Physician to Consult Discharge Meds Discharge Medications Home Medications triamcinolone acetonide 1 applic TOPICAL QAMP PRN 09/22/20 [History Confirmed 09/23/20 Last Taken Unknown] polyethylene glycol 3350 [Miralax] 17 g PO QDAY 09/23/20 [History Confirmed 09/23/20 Last Taken 09/22/20 08:00] COURSE Hospital Course Hospital course: Patient was admitted on September 22, 2020 for Covid pneumonia. Covid specific treatments including remdesivir, dexamethasone, diuretics with Lasix, anticoagulations with Lovenox, as well as antibiotics coverage including Rocephin and Zithromax were all provided. In addition, oxygenation support initially with oxygen mask which were later upgraded to BiPAP were all instituted. However, patient's respiratory status continued to deteriorate to the point that it was failed intubations was eventually indicated. As a result, patient was eventually being transferred to [place] with accepting physician Dr. Delfino Blake on 09/24/20 after being successfully intubated. Discharge diagnosis: CoVID pneumonia Time Spent with Patient Time attestation: Total time spent providing and/or coordinating discharge services: Patient was admitted on September 22, 2020 for Covid pneumonia. Covid specific treatments including remdesivir, dexamethasone, diuretics with Lasix, anticoagulations with Lovenox, as well as antibiotics coverage including Rocephin and Zithromax were all provided. In addition, oxygenation support initially with oxygen mask which were later upgraded to BiPAP were all instituted. However, patient's respiratory status continued to deteriorate to the point that it was failed intubations was eventually indicated. As a result, patient was eventually being transferred to [place] with accepting physician Dr. Delfino Blake on 09/24/20 after being successfully intubated. EXAM Constitutional Vitals: Temp Pulse Resp BP Pulse Ox 36.3 C 67 30 H 102/54 99 09/24/20 04:39 09/24/20 05:00 09/24/20 05:00 09/24/20 04:02 09/24/20 05:00 General appearance: cooperative and no acute distress Head Head exam: Present atraumatic and normocephalic Eye Eye exam: Present EOMI and PERRL ENT ENT exam: Present mucous membranes moist, normal exam and normal external ear exam Additional comments: OG and ET tubes in place Neck Neck exam: Present normal inspection; Absent lymphadenopathy, tenderness and thyromegaly Respiratory Respiratory exam: Absent accessory muscle use, respiratory distress and wheezes Additional comments: Coarse breath sound in all lung sneed. Cardiovascular Cardiovascular exam: Present normal rate and rhythm; Absent JVD GI/Abdominal GI/Abdominal exam: Present normal bowel sounds and soft; Absent organomegaly and tenderness Rectal Rectal exam: Present deferred Additional comments: Lowry tube in place Extremities Exam Extremities exam: Present full ROM, normal capillary refill and normal inspection; Absent tenderness Neurological Exam Neurological exam: Present alert, CN II-XII intact and oriented X3; Absent motor sensory deficit Psychiatric Psychiatric exam: Present normal affect and normal mood; Absent anxious and depressed Skin Skin exam: Present dry and intact Discharge Data Data Completed and Pending Labs on day of discharge: Labs from last 24 hours 09/24/20 09/24/20 09/24/20 05:31 05:30 05:30 WBC RBC Hgb Hct MCV MCH MCHC RDW Plt Count MPV Neut % (Auto) Lymph % (Auto) [place] % (Auto) Eos % (Auto) Baso % (Auto) Lymph # (Auto) [place] # (Auto) Eos # (Auto) Baso # (Auto) Absolute Neutrophils PT INR Fibrinogen D-Dimer Sodium Pending Potassium Pending Chloride Pending Carbon Dioxide Pending Anion Gap Pending BUN Pending Creatinine Pending GFR Calculation Pending Glucose Pending Calcium Pending Magnesium Pending Ferritin Pending Total Bilirubin Pending AST Pending ALT Pending Alkaline Phosphatase Pending Lactate Dehydrogenase Pending C-Reactive Protein Pending Total Protein Pending Albumin Pending Globulin Pending Albumin/Globulin Ratio Pending Procalcitonin Pending 09/24/20 09/24/20 09/23/20 05:30 05:30 05:51 WBC Pending RBC Pending Hgb Pending Hct Pending MCV Pending MCH Pending MCHC Pending RDW Pending Plt Count Pending MPV Pending Neut % (Auto) Pending Lymph % (Auto) [place] % (Auto) Eos % (Auto) Baso % (Auto) Lymph # (Auto) [place] # (Auto) Eos # (Auto) Baso # (Auto) Absolute Neutrophils PT Pending INR Pending Fibrinogen Pending D-Dimer Pending Sodium 134 Potassium 3.8 Chloride 96 Carbon Dioxide 24 Anion Gap 14.0 BUN 23 Creatinine 1.1 GFR Calculation 68 Glucose 143 H Calcium 8.2 L Magnesium Ferritin Total Bilirubin 0.5 AST 69 H ALT 52 H Alkaline Phosphatase 84 Lactate Dehydrogenase C-Reactive Protein Total Protein 6.3 Albumin 3.2 Globulin 3.1 Albumin/Globulin Ratio 1.0 Procalcitonin 09/23/20 09/23/20 09/23/20 05:37 05:36 05:36 WBC RBC Hgb Hct MCV MCH MCHC RDW Plt Count MPV Neut % (Auto) Lymph % (Auto) [place] % (Auto) Eos % (Auto) Baso % (Auto) Lymph # (Auto) [place] # (Auto) Eos # (Auto) Baso # (Auto) Absolute Neutrophils PT 13.7 INR 1.0 Fibrinogen 618 H D-Dimer 0.90 H Sodium Potassium Chloride Carbon Dioxide Anion Gap BUN Creatinine GFR Calculation Glucose Calcium Magnesium 2.3 Ferritin 1593.0 H Total Bilirubin AST ALT Alkaline Phosphatase Lactate Dehydrogenase 539 H C-Reactive Protein 8.20 H Total Protein Albumin Globulin Albumin/Globulin Ratio Procalcitonin 0.21 H 09/23/20 05:36 WBC 4.5 RBC 4.51 Hgb 13.8 Hct 41.2 MCV 91.4 MCH 30.6 MCHC 33.5 RDW 13.0 Plt Count 142 MPV 10.7 H Neut % (Auto) 73.4 Lymph % (Auto) 20.8 [place] % (Auto) 5.6 Eos % (Auto) 0 Baso % (Auto) 0.2 Lymph # (Auto) 0.93 L [place] # (Auto) 0.25 Eos # (Auto) 0 Baso # (Auto) 0.01 Absolute Neutrophils 3.29 PT INR Fibrinogen D-Dimer Sodium Potassium Chloride Carbon Dioxide Anion Gap BUN Creatinine GFR Calculation Glucose Calcium Magnesium Ferritin Total Bilirubin AST ALT Alkaline Phosphatase Lactate Dehydrogenase C-Reactive Protein Total Protein Albumin Globulin Albumin/Globulin Ratio Procalcitonin Preliminary micro results at discharge 09/22/20 15:30 Blood Culture - Preliminary Blood 09/22/20 15:18 Blood Culture - Preliminary Blood Discharge Plan Patient/Caregiver Discharge Instructions Activity: as instructed Diet: NPO Prescriptions: Continued triamcinolone acetonide 0.1 % ointment 1 applic TOPICAL QAMP PRN (Reason: Skin Irritation) RF: 0 polyethylene glycol 3350 [Miralax] 17 gram/dose Powder 17 g PO QDAY RF: 0 Discontinued tramadol 50 mg tablet 50 - 100 mg PO Q4-6HP PRN (Reason: Pain) RF: 0 levothyroxine [Euthyrox] 125 mcg Tablet 125 mcg PO QDAY RF: 0 methocarbamol [Robaxin] 750 mg Tablet 750 mg PO TIDP PRN (Reason: Pain) RF: 0 hydrochlorothiazide 25 mg Tablet 25 mg PO QAM RF: 0 losartan 100 mg Tablet 100 mg PO QDAY RF: 0 Follow Up Plan Follow up with: Reshma De Leon MD [Primary Care Provider] - Patient Disposition: Xfer Other Prognosis: Serious Rehab Potential: Undetermined I certify that the patient requires SNF services: No Overall status at discharge: patient is not back to baseline Discharge Orders: Discharge Order (Routine); Ordered 09/24/20 Ordered By: Benji BAUTISTA VTE Deep Vein Thrombosis/Pulmonary Embolism Present on Admission: No
[2020-09-24 07:02] LABS: Basophils # (Auto) 0.02 K/mcL (0.00-0.20); Basophils % (Auto) 0.2 % (0.0-2.0); Eosinophils # (Auto) 0 K/mcL (0.00-0.70); Eosinophils % (Auto) 0 % (0.0-7.0); Hematocrit 41.6 % (41.0-55.0); Hemoglobin 14.3 g/dL (13.5-16.5); Lymphocytes # (Auto) 1.31 K/mcL (1.50-4.80); Lymphocytes % (Auto) 15.3 % (15.0-49.0); Mean Cell Volume 89.3 fL (80.0-100.0); Mean Corpuscular HGB Conc 34.4 g/dL (31.0-36.0); Mean Platelet Volume 11.3 fL (7.4-10.4); Monocytes # (Auto) 0.41 K/mcL (0.10-0.90); Monocytes % (Auto) 4.8 % (1.0-12.0); Neutrophils % (Auto) 79.7 % (38.0-78.0); Platelet Count 159 K/mcL (140-440); RBC 4.66 M/mcL (4.50-5.90); Red Cell Distribution Width 12.7 % (11.5-14.5); WBC 8.5 K/mcL (4.5-11.0)
--- NOTE | 2020-09-24 07:21 | XRay Report ---
INDICATION: INTUBATION AND OG placement, Central line placemen TECHNIQUE: AP portable semiupright chest x-ray COMPARISON: Previous examination dated 09/22/2020 FINDINGS:Endotracheal tube tip is 2.5 cm above the britni. Interval placement of right central venous catheter with its tip in the proximal right atrium. There is no pneumothorax. Interval placement of esophagogastric tube stomach Lungs:Bilateral interstitial pulmonary parenchymal infiltrates. When allowances are made for differences in technique there is been no definite interval change. Appearance remains consistent with pneumonia Heart, vascular:No significant cardiomegaly. Pulmonary vascularity is normal. No pulmonary edema or pulmonary congestion Mediastinum, ludivina:No mediastinal widening. No hilar mass Pleura:No pleural fluid. No pleural-based mass or calcification Skeletal:Negative. There are surgical clips in the right axilla IMPRESSION: 1. Endotracheal tube, esophagogastric tube, right central venous catheter as described above 2. Bilateral pulmonary parenchymal infiltrates consistent with, but pneumonia Interpreted and Authenticated by: Asael Willard 09/24/20
[2020-09-24 07:25] LABS: INR 1.1 (0.9-1.1); Prothrombin Time 14.7 sec (11.9-14.5)
[2020-09-24 07:34] LABS: ALT/SGPT 48 U/L (<40); AST/SGOT 67 U/L (<40); Albumin 2.8 gm/dL (3.2-5.2); Albumin/Globulin Ratio 0.9 (1.0-2.3); Alkaline Phosphatase 89 U/L (39-117); Bilirubin,Total 0.6 mg/dL (0.1-1.0); Blood Urea Nitrogen 29 mg/dL (8-23); Calcium 8.5 mg/dL (8.6-10.4); Carbon Dioxide 26 mmol/L (22-30); Chloride 99 mmol/L (96-108); Globulin 3.2 gm/dL (2.2-3.7); Glomerular Filtration Rate 87; Glucose 112 mg/dL (70-105)
[2020-09-24 07:35] LABS: Lactate Dehydrogenase 638 U/L (135-225)
--- NOTE | 2020-09-24 10:48 | General Surgery Progress Note ---
Surgical - Auxillary Note - Subjective Patient Information: Note initiated : 09/24/20 at 10:45 am Service Date, if different from initiated Date: [] Patient: Julius Finley 70 y/o M admitted on 09/22/20 for shortness of breath, low O2 sats. Chief Complaint: [call for emergent intubation, central line access and OGT placement declining resp status overnight\ plan for intubation and transfer to tertiary care Procedure done without complication, dagoberto well, see procedure note post procedure cxr done and reviewed, line, ETT, OGT placements all good, may be used. DIETER]
--- NOTE | 2020-09-24 10:50 | Procedure Note ---
Procedures - Central Line Placement Right SC Consent obtained: written consent Date of Procedure: 09/24/20 Time out performed: Yes Patient placed on monitor/pulse ox: Yes (intubated/ventilated) MD prep: mask, sterile gown, sterile gloves, cap, other (N95, triple glove, eye protection, reverse airflow) Central line prep: 2% Chlorhexidine scrub (X2) Local anesthesia used: lidocaine 1% Amount of anesthesia used (mls): 5 Ultrasound used for placement: No Central line lumen inserted: quad, 20 cm Post procedure: sutured in place, good blood return, all ports aspirated, flushed, capped, sterile dressing applied Post procedure x-ray: tip of catheter in good position, no pneumothorax seen Patient tolerated procedure: well, no complications Complications: none - Feeding Tube Replacement Type of tube: other (orogastric) Date of Procedure: 09/24/20 Insertion site prior to procedure: clean Tube used for reinsertion: Bard Syriac Tube Size (F): 18 Verification of placement: KUB Tube secured by: attachment device Patient tolerated procedure: well, no complications (OGT for this intubated/ventilated and sedated patient before transfer) - Intubation Time out performed: Yes Date of Procedure: 09/24/20 Sedative: Versed Mg given: 10 Paralytic: Rocuronium ETT: ETCO2, BBS Mg given: 50 Assist device used: glide ET tube size: 8 ET tube uncuffed: No Tube secured depth (cm): 24 Tube secured location: lips Tube placement confirmation: visualized tube passing through cords, equal breath sounds bilaterally, no breath sounds over epigastrium, confirmation by capnometry # of Attempts: 1 Patient tolerated procedure: well, no complications Intubation complications: none Additional comments: emergent call for covdi resp failure, plan for transfer on arrival pt unable to lie flat wo losing sats. induction with versed 10, ketamine 50 and poonam 50, and phenylephrine 100. CHRIS first wo problem, then RSCV CVC placement wo problem, then OGT placement wo problem. CXR done, all confirmed good placement, able to use.
== END 2020-09-24 07:10 | disposition other institution (70) | DRG 208 ==
LOC: ED 14:33 → ICU 17:11
PROVIDERS: ADMIT Internal Medicine; ATTEND Internal Medicine